=== PATIENT | female | born 1945 | race Caucasian/White ===

== ENCOUNTER → 2016-09-19 | Outpatient (CLI) | payer OTHER | LOC: FIMAGING 13:57 | PROVIDERS: ATTEND Internal Medicine | DX: Z12.31 Encounter for screening mammogram for malignant neoplasm of breast (principal) | CPT/HCPCS: G0202 ==

== ENCOUNTER 2016-12-19 19:09 | Emergency (ER) | payer OTHER ==
[2016-12-19] MEDS ORDERED: NS 1,000 ML IV ONE (19:24)
[2016-12-19] MEDS ORDERED: LORazepam 2 MG/ML INJ IVP ONE (19:24)
--- NOTE | 2016-12-19 19:29 | EDPHY ---
H & P Stated Complaint: feeling shakey, high BP Time Seen by Provider: 12/19/16 19:15 HPI/ROS: CHIEF COMPLAINT: Shaky, cold, anxious HISTORY OF PRESENT ILLNESS: The patient is a 71-year-old female with a history of anxiety. She takes Ativan nightly to help her sleep. She has tapered from 1.5 mg to 1 mg over the last several months. She has been taking 1 mg for the last 2 weeks. She states that this morning she began feeling shaky, cold and tight all over her body. She then took her blood pressure this evening and noticed that it was elevated. Her brought her to the emergency department. She denies chest pain or shortness of breath. She denies nausea vomiting or diarrhea. No fever. No cough. No headache. No lightheadedness. REVIEW OF SYSTEMS: Constitutional: See HPI EENTM: denies: blurred vision, double vision, nose congestion Respiratory: denies: cough, shortness of breath Cardiac: denies: chest pain, irregular heart rate, lightheadedness, palpitations Gastrointestinal/Abdominal: denies: abdominal pain, diarrhea, nausea, vomiting, blood streaked stools Genitourinary: denies: dysuria, frequency, hematuria, pain Musculoskeletal: denies: joint pain, muscle pain Skin: denies: lesions, rash, jaundice, bruising Neurological: denies: headache, numbness, paresthesia, tingling, dizziness, weakness Hematologic/Lymphatic: denies: blood clots, easy bleeding, easy bruising Immunologic/allergic: denies: HIV/AIDS, transplant EXAM: GENERAL: Anxious, well-nourished HEAD: Atraumatic, normocephalic. EYES: Pupils equal round and reactive to light, extraocular movements intact, sclera anicteric, conjunctiva are normal. ENT: TMs normal, nares patent, oropharynx clear without exudates. Moist mucous membranes. NECK: Normal range of motion, supple without lymphadenopathy or JVD. LUNGS: Breath sounds clear to auscultation bilaterally and equal. No wheezes rales or rhonchi. HEART: Regular rate and rhythm without murmurs, rubs or gallops. ABDOMEN: Soft, nontender, normoactive bowel sounds. No guarding, no rebound. No masses appreciated. BACK: No CVA tenderness, no spinal tenderness, step-offs or deformities EXTREMITIES: Normal range of motion, no pitting or edema. No clubbing or cyanosis. NEUROLOGICAL: Cranial nerves II through XII grossly intact. Normal speech, normal gait. 5/5 strength, normal movement in all extremities, normal sensation PSYCH: Normal mood, normal affect. SKIN: Warm, dry, normal turgor, no visible rashes or lesions. Source: Patient Exam Limitations: No limitations - Personal History Current Tetanus/Diphtheria Vaccine: Yes Current Tetanus Diphtheria and Acellular Pertussis (TDAP): Yes Tetanus Vaccine Date: 2009 - Medical/Surgical History Hx Asthma: No Hx Chronic Respiratory Disease: No Hx Diabetes: No Hx Cardiac Disease: No Hx Renal Disease: No Hx Cirrhosis: No Hx Alcoholism: No Hx HIV/AIDS: No Hx Splenectomy or Spleen Trauma: No Other PMH: SDH 02-11, appendectomy hysterectomy. ovaries removed. Gallbladder out 2013. PMH: anxiety; cyclical depression - Family History Significant Family History: No pertinent family hx - Social History Smoking Status: Never smoked Alcohol Use: None Drug Use: None Constitutional: Initial Vital Signs Temperature (C) 36.5 C 12/19/16 19:19 Heart Rate 99 12/19/16 19:19 Respiratory Rate 16 12/19/16 19:19 Blood Pressure 174/85 H 12/19/16 19:19 O2 Sat (%) 98 12/19/16 19:19 O2 Delivery Mode Room Air Allergies/Adverse Reactions: doxycycline Allergy (Verified 12/19/16 19:18) Penicillins Allergy (Verified 12/19/16 19:18) Home Medications: Medication Instructions Recorded Cetirizine [ZyRTEC] 10 mg PO HS 07/08/12 Estrogens, Conjugated [Premarin] 0.625 mg PO DAILY 02/17/13 LORazepam [Ativan] 0.5 mg PO DAILY PRN 01/12/14 LaMICtal 04/14/15 Medical Decision Making - Diagnostics EKG Interpretation: An EKG obtained and was read and documented in trace view. Please see trace view for full reading and report. Sinus rhythm, no acute ischemic changes ED Course/Re-evaluation: 9:15 p.m. the patient is feeling completely better. She thinks the Ativan and fluids helped tremendously. I suspect that she might be starting to have a viral syndrome with her chills and dry cough exacerbated by anxiety and hypertension. The patient agrees with this as does her . Her flu test will not be back for another 15 or 20 minutes. I spoke with Dr. Louis Man who will prescribe for Tamiflu if needed. Patient and agree with this. Differential Diagnosis: Partial list of the Differential diagnosis considered include but were not limited to; viral syndrome, anxiety, hypertension and although unlikely based on the history and physical exam, I also considered acute coronary disease, PE, arrhythmia, head injury. I discussed these differential diagnoses and the plan with the patient as well as the usual and expected course. The patient understands that the diagnosis is provisional and that in medicine we are not always correct and that further workup is often warranted. Usual and customary warnings were given. All of the patient's questions were answered. The patient was instructed to return to the emergency department should the symptoms at all worsen or return, otherwise to followup with the physician as we discussed. - Data Points Laboratory Results: Laboratory Results 12/19/16 19:30 12/19/16 19:30 12/19/16 19:30 TSH Pending Medications Given: Discontinued Medications Sodium Chloride (Ns) 1,000 mls @ 0 mls/hr IV EDNOW ONE; Wide Open PRN Reason: Protocol Stop: 12/19/16 19:25 Last Admin: 12/19/16 19:38 Dose: 1,000 mls Lorazepam (Ativan Injection) 0.5 mg IVP EDNOW ONE Stop: 12/19/16 19:25 Last Admin: 12/19/16 19:41 Dose: 0.5 mg Departure - Departure Disposition: Home, Routine, Self-Care Clinical Impression: Viral syndrome, Anxiety Hypertension Qualifiers: Hypertension type: unspecified Qualified Code(s): I10 - Essential (primary) hypertension Condition: Fair Instructions: Viral Syndrome (ED), Hypertension (ED), Anxiety (ED) Referrals: Janell Sneed MD [Primary Care Provider] - As per Instructions
--- NOTE | 2016-12-19 19:41 | CPEKG ---
Heart Rate: 90 RR Interval: 667 P-R Interval: 192 QRSD Interval: 78 QT Interval: 384 QTC Interval: 470 P [place]: 60 QRS [place]: 32 T Wave [place]: 36 EKG Severity - NORMAL ECG - EKG Impression: SINUS RHYTHM Electronically Signed By: Justus Luna 19-Dec-2016 19:43:40
[2016-12-19 19:49] LABS: % IMMATURE GRANULYOCYTES 0.2 % (0.0-1.1); ABSOLUTE IMMATURE GRANULOCYTES 0.02 10^3/uL (0.00-0.10); ADD DIFF? NO; ADD MORPH? NO; ADD SCAN? NO; ATYPICAL LYMPHOCYTE FLAG 20 (0-99); FRAGMENT RBC FLAG 0 (0-99); HEMATOCRIT 45.8 % (38.0-47.0); HEMOGLOBIN 15.2 g/dL (12.6-16.3); LEFT SHIFT FLG 0 (0-99); LIPEMIA HEMOLYSIS FLAG 80 (0-99); MEAN CELL HEMOGLOBIN 30.3 pg (27.9-34.1); MEAN CELL HEMOGLOBIN CONCENTR. 33.2 g/dL (32.4-36.7); MEAN CELL VOLUME 91.2 fL (81.5-99.8); MEAN PLATELET VOLUME 10.1 fL (8.7-11.7); PLATELET CLUMPS FLAG 0 (0-99); PLATELET COUNT 255 10^3/uL (150-400); RED BLOOD CELL COUNT 5.02 10^6/uL (4.18-5.33); RED CELL DISTRIBUTION WIDTH 13.2 % (11.5-15.2)
[2016-12-19 20:16] LABS: ANION GAP 14 mEq/L (8-16); CARBON DIOXIDE 24 mEq/l (22-31); CHLORIDE 105 mEq/L (97-110); CREATININE 0.9 mg/dL (0.6-1.0); GLOMERULAR FILTRATION RATE > 60; GLUCOSE 123 mg/dL (70-100); POTASSIUM 4.1 mEq/L (3.5-5.2); SODIUM 143 mEq/L (134-144)
[2016-12-19 20:47] VITALS: BP 141/66; TEMP 98.1
[2016-12-19 22:02] VITALS: PULSE 71; RESP 16; O2SAT 97
== END 2016-12-19 22:00 | disposition home or self-care (01) ==
DX: B34.9 Viral infection, unspecified (principal); F41.9 Anxiety disorder, unspecified; I10 Essential (primary) hypertension; E86.9 Volume depletion, unspecified
CPT/HCPCS: 71020; 93005; 96361; 96374; 99285; J2060

== ENCOUNTER 2017-04-09 16:32 | Emergency (ER) | payer OTHER ==
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
[2017-04-09 16:39] VITALS: TEMP 97.7; O2SAT 95
[2017-04-09] MEDS ORDERED: LORazepam 0.5 MG TAB PO ONE (16:43)
[2017-04-09 17:43] VITALS: BP 144/88; PULSE 100; RESP 16
== END 2017-04-09 17:53 | disposition home or self-care (01) ==
LOC: EDUNIT#
DX: S16.1XXA Strain of muscle, fascia and tendon at neck level, initial encounter (principal); V49.49XA Driver injured in collision with other motor vehicles in traffic accident, initial encounter; Y92.410 Unspecified street and highway as the place of occurrence of the external cause; Y99.8 Other external cause status; Y93.89 Activity, other specified

== ENCOUNTER 2017-08-25 14:22 | Emergency (ER) | payer OTHER ==
[2017-08-25 15:15] LABS: PLATELET COUNT 232 10^3/uL (150-400)
--- NOTE | 2017-08-25 15:34 | EDPHY ---
H & P Time Seen by Provider: 08/25/17 14:56 HPI/ROS: HPI Fatigue, nausea. 72-year-old female by private vehicle with her . This patient has a history of chronic depression and anxiety. She has been taking Lamictal as well as lorazepam at night for 3 years. She had no event in her family which caused her depression to worsen several weeks ago. She was started on Trileptal 150 mg daily 2 weeks ago. This dose has been increased to 300 mg daily. She takes this medication twice daily. She reports that over the last 2 days and several days since starting the higher dose she has had nausea which is worse in the morning but no vomiting, chronic fatigue, intermittent problems with balance. She spoke with the on-call psychiatrist Dr. Mcbride last night and was instructed to stop taking the Trileptal twice daily and just take it at night. She did not take a dose this morning but did take a dose last night. ROS: Constitutional: No fever, no chills. As above. Eyes: No discharge. No changes in vision. ENT: No sore throat. No nasal congestion or rhinorrhea. Respiratory: No cough. No shortness of breath. Cardiac: No chest pain, no palpitations. Gastrointestinal: No abdominal pain, no vomiting, no diarrhea. As above. Genitourinary: No hematuria. No dysuria or increased frequency with urination. Musculoskeletal: No back pain. No neck pain. No myalgias or arthralgias. Skin: No rashes. Neurological: No headache. No focal weakness or altered sensation. As above. Past medical history: Appendectomy, hysterectomy, oophorectomy, cholecystectomy , anxiety, cyclical depression. Social history: Here with her . Denies alcohol. Nonsmoker. Physical Exam: General Appearance: Alert, no distress. This patient is responding to questions appropriately and in full sentences. This patient appears well- hydrated and well-nourished. Eyes: Pupils equal and round at 3-2 mm bilaterally, no pallor or injection. No lid edema, erythema or injection. No nystagmus. Respiratory: There are no retractions, lungs are clear to auscultation with good air movement bilaterally. Cardiovascular: Regular rate and rhythm. No murmur. Gastrointestinal: Abdomen is soft and nontender, no masses, bowel sounds normal. No focal tenderness at McBurney's point. No Whitney sign. Neurological: Motor sensory function is grossly intact. Cranial nerves are normal. Gait is normal. Skin: Warm and dry, no rashes. Musculoskeletal: Neck is supple and nontender. Extremities are symmetrical. All joints range without pain or impingement. Psychiatric: No agitation. No depression. Database: EKG: EKG time is 5:00 p.m.; EKG shows a narrow complex normal sinus rhythm with a ventricular rate of 63. The [place], QRS, QT intervals are within normal limits. There are no ST-T wave changes indicative of ischemic or injury pattern. No evidence of right heart strain. Interpreted by me. Imaging: Procedures: Emergency department course: Vital signs reviewed. The patient is mildly hypertensive. Vital signs are otherwise normal. Her presentation is consistent with a medication reaction and fits the side effect profile in particular of Trileptal. I feel that CVA or other acute organic neurologic process is unlikely. 5:00 p.m., the patient was re-evaluated. She is resting comfortably at this time. No change in her neurologic status. Results of her emergency department workup discussed with her. She feels comfortable going home and I feel she is safe for discharge. She will continue the once daily dosing, down from twice daily and speak with her psychiatrist or the on-call psychiatrist this evening or tomorrow about tapering this does down and finding a replacement medication. Follow-up was reviewed with her thoroughly. Return to emergency department precautions discussed. All of her questions were answered. She was discharged in good condition from the emergency department. Differential Diagnosis: The differential diagnosis on this patient includes but is not limited to medication reaction. CVA, serotonin syndrome, neuroleptic malignant syndrome, central versus peripheral vertigo, infectious etiology unlikely. This represents a partial list of diagnoses considered. These considerations are based on history, physical exam, past history, reassessment and diagnostic testing. Smoking Status: Never smoked Constitutional: Initial Vital Signs Temperature (C) 36.8 C 08/25/17 14:39 Heart Rate 65 08/25/17 14:39 Respiratory Rate 16 08/25/17 14:39 Blood Pressure 140/75 H 08/25/17 14:39 O2 Sat (%) 96 08/25/17 14:39 O2 Delivery Mode Room Air Allergies/Adverse Reactions: doxycycline Allergy (Verified 08/25/17 14:38) Home Medications: Medication Instructions Recorded Cetirizine [ZyRTEC] 10 mg PO HS 07/08/12 Estrogens, Conjugated [Premarin] 0.625 mg PO DAILY 02/17/13 LORazepam [Ativan] 0.5 mg PO DAILY PRN 01/12/14 LaMICtal 04/14/15 Oxcarbazepine 08/25/17 Medical Decision Making - Data Points Laboratory Results: Laboratory Results 08/25/17 15:00 08/25/17 15:00 08/25/17 08/25/17 08/25/17 15:00 15:00 15:00 WBC 5.97 10^3/uL 10^3/uL (3.80-9.50) RBC 4.72 10^6/uL 10^6/uL (4.18-5.33) Hgb 14.1 g/dL g/dL (12.6-16.3) Hct 43.3 % % (38.0-47.0) MCV 91.7 fL fL (81.5-99.8) MCH 29.9 pg pg (27.9-34.1) MCHC 32.6 g/dL g/dL (32.4-36.7) RDW 13.5 % % (11.5-15.2) Plt Count 232 10^3/uL 10^3/uL (150-400) MPV 9.6 fL fL (8.7-11.7) Neut % (Auto) 58.2 % % (39.3-74.2) Lymph % (Auto) 30.0 % % (15.0-45.0) [place] % (Auto) 8.2 % % (4.5-13.0) Eos % (Auto) 2.3 % % (0.6-7.6) Baso % (Auto) 1.0 % % (0.3-1.7) Nucleat RBC Rel Count 0.0 % % (0.0-0.2) Absolute Neuts (auto) 3.47 10^3/uL 10^3/uL (1.70-6.50) Absolute Lymphs (auto) 1.79 10^3/uL 10^3/uL (1.00-3.00) Absolute Monos (auto) 0.49 10^3/uL 10^3/uL (0.30-0.80) Absolute Eos (auto) 0.14 10^3/uL 10^3/uL (0.03-0.40) Absolute Basos (auto) 0.06 10^3/uL 10^3/uL (0.02-0.10) Absolute Nucleated RBC 0.00 10^3/uL 10^3/uL (0-0.01) Immature Gran % 0.3 % % (0.0-1.1) Immature Gran # 0.02 10^3/uL 10^3/uL (0.00-0.10) Sodium 143 mEq/L mEq/L (135-145) Potassium 4.2 mEq/L mEq/L (3.3-5.0) Chloride 103 mEq/L mEq/L (97-110) Carbon Dioxide 29 mEq/l mEq/l (22-31) Anion Gap 11 mEq/L mEq/L (8-16) BUN 19 mg/dL mg/dL (7-23) Creatinine 0.8 mg/dL mg/dL (0.6-1.0) Estimated GFR > 60 Glucose 93 mg/dL mg/dL (70-100) Calcium 9.5 mg/dL mg/dL (8.5-10.4) Total Bilirubin 0.5 mg/dL mg/dL (0.1-1.4) Conjugated Bilirubin 0.5 mg/dL mg/dL (0.0-0.5) Unconjugated Bilirubin 0.0 mg/dL mg/dL (0.0-1.1) AST 26 IU/L IU/L (14-46) ALT 27 IU/L IU/L (9-52) Alkaline Phosphatase 69 IU/L IU/L (38-126) Total Protein 7.0 g/dL g/dL (6.3-8.2) Albumin 4.4 g/dL g/dL (3.5-5.0) Lipase 85 IU/L IU/L (23-300) TSH 1.890 uIU/mL uIU/mL (0.465-4.680) Departure - Departure Disposition: Home, Routine, Self-Care Clinical Impression: Medication reaction Condition: Good Instructions: Fatigue (ED) Additional Instructions: Read and follow provided instructions. Follow-up with your psychiatrist within the next 2 days for re-evaluation and discussion of the replacement medication for you're Trileptal. Use no more than 1 dose per day at this time and discuss with your psychiatrist tapering this medication verses stopping completely. Return to the emergency department for worsening symptoms or other serious concerns. Referrals: Janell Sneed MD [Primary Care Provider] - As per Instructions
--- NOTE | 2017-08-25 17:01 | CPEKG ---
Heart Rate: 63 RR Interval: 952 P-R Interval: 196 QRSD Interval: 72 QT Interval: 408 QTC Interval: 418 P [place]: 64 QRS [place]: 28 T Wave [place]: 50 EKG Severity - NORMAL ECG - EKG Impression: SINUS RHYTHM Electronically Signed By: Thierry Cannon 25-Aug-2017 23:14:02
[2017-08-25 17:12] VITALS: BP 131/72
== END 2017-08-25 17:12 | disposition home or self-care (01) ==
DX: Z76.0 Encounter for issue of repeat prescription (principal)

== ENCOUNTER → 2017-09-20 | Outpatient (CLI) | payer OTHER | LOC: FIMAGING 08:58 | PROVIDERS: ATTEND Internal Medicine | DX: Z12.31 Encounter for screening mammogram for malignant neoplasm of breast (principal) ==

== ENCOUNTER 2018-03-18 13:22 | Emergency (ER) | payer OTHER ==
--- NOTE | 2018-03-18 13:29 | EDPHY ---
H & P Time Seen by Provider: 03/18/18 13:28 HPI/ROS: CHIEF COMPLAINT: Presyncope HISTORY OF PRESENT ILLNESS: The patient presents to the ED with symptoms of presyncope that began earlier this morning after getting out of a hot tub. The patient did try to drink some water to improve her symptoms however continues to have symptoms of presyncope. She denies any chest pain or shortness of breath. The patient denies any cardiac or pulmonary condition. The patient does not take medications for hypertension. The patient denies any headache, numbness, weakness, dyspnea or asymmetric calf pain or swelling. She has no symptoms at rest or with head movement. REVIEW OF SYSTEMS: A comprehensive 10 point review of systems is otherwise negative aside from elements mentioned in the history of present illness. Source: Patient Exam Limitations: No limitations - Personal History Tetanus Vaccine Date: 2009 - Medical/Surgical History Hx Asthma: No Hx Chronic Respiratory Disease: No Hx Diabetes: No Hx Cardiac Disease: No Hx Renal Disease: No Hx Cirrhosis: No Hx Alcoholism: No Hx HIV/AIDS: No Hx Splenectomy or Spleen Trauma: No Other PMH: SDH 02-11, appendectomy hysterectomy. ovaries removed. Gallbladder out 2013. PMH: anxiety; cyclical depression - Social History Smoking Status: Never smoked - Physical Exam Exam: General Appearance: Alert, no distress Eyes: Pupils equal and round no pallor or injection ENT, Mouth: Mucous membranes moist Respiratory: There are no retractions, lungs are clear to auscultation Cardiovascular: Regular rate and rhythm Gastrointestinal: Abdomen is soft and nontender, no masses, bowel sounds normal Neurological: A&O, normal motor function, normal sensory exam, normal cranial nerves Skin: Warm and dry, no rashes Musculoskeletal: Neck is supple nontender Extremities: symmetrical, full range of motion Constitutional: Initial Vital Signs Temperature (C) 36.5 C 03/18/18 13:26 Heart Rate 70 03/18/18 13:26 Respiratory Rate 18 03/18/18 13:26 Blood Pressure 126/62 H 03/18/18 13:26 O2 Sat (%) 98 03/18/18 13:26 O2 Delivery Mode Room Air Allergies/Adverse Reactions: doxycycline Allergy (Verified 03/18/18 13:25) Home Medications: Medication Instructions Recorded LORazepam [Ativan] 0.5 mg PO DAILY PRN 01/12/14 LaMICtal 04/14/15 Medical Decision Making - Diagnostics EKG Interpretation: EKG: Complete interpretation has been separately recorded in the [employer] archive. Summary impression: Sinus rhythm, rate 65 ED Course/Re-evaluation: The patient presents to the ED with orthostasis in the setting of a prolonged stay in a hot tub. The patient has no evidence of hyperthermia. The patient's EKG demonstrates no evidence of arrhythmia. CBC and metabolic panel are within normal limits. The patient had an IV established. She received 2 L of normal saline in the emergency department. The patient was kept on a field trainer. She received serial examinations over a 2 hr period. I re-evaluated the patient at 3:30 p.m. And she is now ambulatory without any complaints of orthostasis. I do feel that she can safely be discharged home at this point time. She will be given customary aftercare instructions and return precautions. Differential Diagnosis: Differential diagnosis considered includes orthostatic hypotension, dehydration , metabolic abnormality, renal failure, anemia, arrhythmia - Data Points Laboratory Results: Laboratory Results 03/18/18 13:43 03/18/18 13:43 03/18/18 03/18/18 03/18/18 14:41 13:43 13:43 WBC 6.36 10^3/uL 10^3/uL (3.80-9.50) RBC 4.97 10^6/uL 10^6/uL (4.18-5.33) Hgb 14.6 g/dL g/dL (12.6-16.3) Hct 45.9 % % (38.0-47.0) MCV 92.4 fL fL (81.5-99.8) MCH 29.4 pg pg (27.9-34.1) MCHC 31.8 g/dL L g/dL (32.4-36.7) RDW 13.3 % % (11.5-15.2) Plt Count 226 10^3/uL 10^3/uL (150-400) MPV 10.0 fL fL (8.7-11.7) Neut % (Auto) 57.6 % % (39.3-74.2) Lymph % (Auto) 32.7 % % (15.0-45.0) [place] % (Auto) 6.8 % % (4.5-13.0) Eos % (Auto) 1.7 % % (0.6-7.6) Baso % (Auto) 0.9 % % (0.3-1.7) Nucleat RBC Rel Count 0.0 % % (0.0-0.2) Absolute Neuts (auto) 3.66 10^3/uL 10^3/uL (1.70-6.50) Absolute Lymphs (auto) 2.08 10^3/uL 10^3/uL (1.00-3.00) Absolute Monos (auto) 0.43 10^3/uL 10^3/uL (0.30-0.80) Absolute Eos (auto) 0.11 10^3/uL 10^3/uL (0.03-0.40) Absolute Basos (auto) 0.06 10^3/uL 10^3/uL (0.02-0.10) Absolute Nucleated RBC 0.00 10^3/uL 10^3/uL (0-0.01) Immature Gran % 0.3 % % (0.0-1.1) Immature Gran # 0.02 10^3/uL 10^3/uL (0.00-0.10) Sodium 142 mEq/L mEq/L (135-145) Potassium 4.1 mEq/L mEq/L (3.5-5.2) Chloride 105 mEq/L mEq/L (97-110) Carbon Dioxide 30 mEq/l mEq/l (22-31) Anion Gap 7 mEq/L mEq/L (6-14) BUN 17 mg/dL mg/dL (7-23) Creatinine 1.0 mg/dL mg/dL (0.6-1.0) Estimated GFR 55 Glucose 113 mg/dL H mg/dL (70-100) Calcium 9.5 mg/dL mg/dL (8.5-10.4) POC Troponin I 0.01 ng/mL ng/mL (0.00-0.08) Medications Given: Discontinued Medications Sodium Chloride (Ns) 1,000 mls @ 0 mls/hr IV EDNOW ONE; Wide Open PRN Reason: Protocol Stop: 03/18/18 13:50 Last Admin: 03/18/18 13:53 Dose: 1,000 mls Point of Care Test Results: Chemistry 03/18/18 14:41 POC Troponin I 0.01 ng/mL ng/mL (0.00-0.08) Departure - Departure Disposition: Home, Routine, Self-Care Clinical Impression: Vasovagal near-syncope Condition: Good Instructions: Syncope (ED) Additional Instructions: 1. The laboratory testing done in the ED today is normal. 2. Your EKG also demonstrates no evidence of an arrhythmia. 3. I do believe you had lightheadedness from dehydration from your hot tub today. I do recommend increasing your fluid intake when using the hot tub. I also recommend prolonged hot tub exposure. Referrals: Enrique Shin MD [Primary Care Provider] - As per Instructions
[2018-03-18] MEDS ORDERED: NS 1,000 ML IV ONE (13:49)
--- NOTE | 2018-03-18 13:53 | CPEKG ---
Test Reason : OPEN Blood Pressure : / mmHG Vent. Rate : 065 BPM Atrial Rate : 000 BPM P-R Int : 197 ms QRS Dur : 090 ms QT Int : 418 ms P-R-T Axes : 083 009 050 degrees QTc Int : 435 ms Sinus arrhythmia Probable left atrial enlargement Confirmed by Colby Auguste ([id number]) on 03/18/2018 1:53:07 PM Referred By: Confirmed By:Colby Auguste
[2018-03-18 13:58] LABS: PLATELET COUNT 226 10^3/uL (150-400)
[2018-03-18 15:42] VITALS: BP 126/75
== END 2018-03-18 15:57 | disposition home or self-care (01) ==
DX: R55 Syncope and collapse (principal); E86.9 Volume depletion, unspecified
CPT/HCPCS: 84484-ER

== ENCOUNTER 2018-09-15 16:45 | Emergency (ER) | payer OTHER, MEDICARE | END 2018-09-15 18:52 | disposition home or self-care (01) ==

== ENCOUNTER → 2018-09-25 | Outpatient (CLI) | payer MEDICARE | LOC: FIMAGING 09:37 ==